=== PATIENT | male | born 2005 | race African-American/Black ===

== ENCOUNTER 2025-02-04 05:59 | Emergency (ER) | payer OTHER, SELFPAY ==
--- NOTE | ~2025-02-04 | XR_ITS ---
Portable chest x-ray Comparison: None Clinical History: Aspiration Findings: Lungs are clear, without focal consolidation or pleural effusion. Cardiomediastinal silho uette is unremarkable. Bones and soft tissues are unremarkable. Impression: Normal chest. Reviewed, dictated and finalized at location M. Impression: Normal chest.
--- NOTE | ~2025-02-04 | CT_ITS ---
Non-contrast Head CT History: Seizure Technique: Axial non-contrast imaging of the brain was performed. Dose reduction technique was used on this scan by utilizing automated exposure control and iterative reconstruction technique. The dose -length product (DLP) was 643.02 mGy-cm. Findings: There is no evidence of intracranial hemorrhage, mass lesion, or acute infarct. Brain par enchyma appears normal. The ventricles and subarachnoid spaces are normal in size. The calvarium ap pears normal. The visualized paranasal sinuses and mastoid air cells are clear. Impression: No significant abnormality seen. Reviewed, dictated and finalized at location . Impression: No significant abnormality seen.
[2025-02-04 05:57] VITALS: BP 151/75; PULSE 100; RESP 30; TEMP 36.6; O2SAT 93
--- NOTE | 2025-02-04 06:11 | ECG_ITS ---
Test Date: 2025-02-04 06:04:02 Measurements Intervals Chama Rate: 99 P: 78 WA: 168 QRS: 52 QRSD: 102 T: 60 QT: 325 QTc: 417 Interpretive Statements SINUS RHYTHM No previous ECG available for comparison Electronically Signed On 02-04-2025 07:06:21 CDT by Neetu Galvin M.D.
[2025-02-04 06:26] VITALS: PULSE 110
[2025-02-04 06:41] LABS: Hematocrit 51.7 % (42.0-52.0); Hemoglobin 15.9 g/dL (14.0-18.0); Mean Corpuscular HGB Conc 30.8 g/dl (32-36); Mean Corpuscular Hemoglobin 29.9 pg (26-34); Mean Corpuscular Volume 97.2 fl (80-100); Platelet Count Result 346 k/mm3 (150-375); Red Blood Count 5.32 M/mm3 (4.6-6.20); White Blood Count 22.9 K/mm3 (4.5-10.0)
[2025-02-04 06:43] LABS: Add Urine Microscopic? YES; Appearance Urine Clear (Clear); Glucose Urine UA Negative (Negative); Leukocyte Esterase Ur Negative LEU/UL (Negative); Nitrate Urine Negative (Negative); Non Pathogenic Casts 0-2; Specific Grav Ur 1.015 (1.001-1.035)
[2025-02-04 06:44] LABS: Acetaminophen < 10 ug/mL (10-30); Salicylate < 1.0 mg/dL (2-20)
[2025-02-04 06:51] LABS: Cannabinoid Screen Urine Positive (Negative)
[2025-02-04 06:54] LABS: Alanine Aminotransferase 58 U/L (6-50); Albumin Level 5.7 g/dL (3.5-5.1); Alkaline Phosphatase 53 U/L (38-126); Aspartate Amino Transferase 60 U/L (17-59); Bilirubin,Total 1.7 mg/dL (0.2-1.3); Blood Urea Nitrogen 10 mg/dL (9-20); Calcium 10.1 mg/dL (8.4-10.2); Carbon Dioxide < 5 mmol/L (22-30); Chloride 103 mmol/L (98-107); Estimated CRCL calculation 73 ml/min; Estimated Glomerular Filt Rate 56; Glucose 250 mg/dL (65-110); Magnesium 3.1 mg/dL (1.6-2.3); Potassium 4.4 mmol/L (3.4-5.0); Sodium 143 mmol/L (137-145); Total Protein 10.1 g/dL (6.3-8.2)
[2025-02-04 06:56] LABS: Band Neutrophils Percent 0 % (0-6); Lymphocytes Absolute Manual 9.61 K/mm3 (1.1-4.5); Lymphocytes Percent Manual 42 % (18-44); Monocytes Absolute Manual 2.29 K/mm3 (0.1-0.90); Monocytes Percent Manual 10 % (3-9); Neutrophils Absolute Manual 10.76 K/mm3 (1.3-6.7); Neutrophils Percent Manual 47 % (46-73); Total Cells Counted 100
[2025-02-04 06:57] LABS: Anisocytosis 1+; Schistocytes None Seen
--- OUTSIDE RECORDS SUMMARY | 2025-02-04 07:42 | XMS_ITS | Clinical Summary ---
Author Organization [facility] Address [address] [place] [id number] Care Team Providers Care Fans Clerk Name Role Phone Anita Erickson MD Primary Care Provider + Social History Tobacco Use Types Packs/Day Years Used Date Smoking Tobacco: Never Assessed Sex and Gender Information Value Date Recorded Sex Assigned at Not on file Legal Sex Male 10:08 PM [employer] Gender Identity Not on file Sexual Orientation Not on file Plan of Treatment Health Maintenance Due Date Last Done Comments Annual Physical 2006 HPV Vaccines (1 - Male 3-dos e series) 2018 Meningococcal B Vaccine (1 o f 2 - Standard) 2019 Hepatitis C 2021 DTaP, Tdap and Td Vaccines ( 1 - Tdap) 2022 Hepatitis B Vaccines (1 of 3 - 19+ 3-dose series) 2022 COVID-19 Vaccine (1 - 2023-2 5 season) 2024 Meningococcal Vaccine Aged Out No delores doreen eligible based on patient's age to complete this topic Pneumococcal Vaccine: Pediat rics (0 to 5 Years) and At-Risk Patients (6 to 49 Years) Aged Out No longer eligible b ased on patient's age to complete this topic RSV Immunizations Under 20 Months Aged Out No longer eligible based on patient's age to complete this topic Insurance [facility] Care Teams Fans Clerk Relationship Specialty Start Date End Date Anita Erickson MD [address] [address] [place] [id number] PCP - General PEDIATRICS 02/10/19
[2025-02-04] MEDS: SODIUM CHLORIDE 0.9% IV 1,000 ML 999 ML IV CONT (08:15)
--- NOTE | 2025-02-04 08:27 | ED_ITS ---
HPI - Altered Mental Status General Chief Complaint: Altered Mental Status Stated Complaint: Unresponsive Time Seen by Provider: 02/04/25 07:03 History of Present Illness HPI narrative: Patient is a 19-year-old male who presents ER with altered mental status and possible seizure. He is accompanied by 2 friends from [employer] who were staying with them. They report he was acting drowsy and having trouble waking up for them to go on a trip to [place]. He then had an episode where both his arms were flexed up towards his chest and shaking vigorously and he was unconscious. Patient then was confused and combative and received Versed by EMS. No previous history of seizure. No history of trauma according to the friends. Reports that they had been driving around in the evening and eating food hanging out. 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 Patient's parents arrived. No history of seizure. No history of head trauma. Patient does use marijuana. Patient does have a PCP. Related Data Allergies Allergy/AdvReac Type Severity Reaction Status Date / Time No Known Allergies Allergy Verified 02/04/25 08:14 Review of Systems 2 Review of Systems: ROS unobtainable: Yes unobtainable due to medical condition PMFSH Past Medical History Medical History (Updated 02/04/25 @ 12:29 by Aubrey Mckenna MD) Healthy adult male Surgical History Surgical History (Updated 02/04/25 @ 08:29 by Aubrey Mckenna MD) No history of previous surgery Exam 2 Narrative: GENERAL: Well-appearing, well-nourished, and in no acute distress. HEAD: Normocephalic, atraumatic. EYES: PERRL and EOMI. ENT: Mucous membranes moist. NECK: Supple. CHEST: Clear to auscultation. No respiratory distress. HEART: Tachycardic regular. Normal peripheral pulses. ABDOMEN: Soft, nontender, nondistended. EXTREMITIES: Normal range of motion. No edema. SKIN: Warm, dry, no rash. NEURO: Alert and oriented x3. Course Course Emergency Course: Patient awake alert orient x3 at neurologic baseline. Family at bedside. Discussed lab and imaging results. Discussed possibly a seizure as history sounds good for 1 but not witnessed here. Do not typically start antiepileptics after first-time seizure. Recommend no driving for 6 months and follow-up with neurology. Will give name of Neurology here but family would like to follow with a physician [facility] where they are from. Recommend hydration, did sleeps schedule, avoidance of intoxicating substances. Discussed elevated creatinine and blood sugar and they will follow up with his PCP. Leukocytosis felt to be reactive to seizure. No bands or significant elevation in neutrophils. Vital Signs Vital signs: Vital Signs Temperature 97.8 F 02/04/25 05:57 Pulse Rate 100 02/04/25 05:57 Respiratory Rate 30 H 02/04/25 05:57 Blood Pressure 151/75 H 02/04/25 05:57 Pulse Oximetry 93 02/04/25 05:57 Oxygen Delivery Room Air 02/04/25 05:57 Temperature 97.8 F 02/04/25 05:57 Pulse Rate 110 H 02/04/25 06:26 Respiratory Rate 30 H 02/04/25 05:57 Blood Pressure 151/75 H 02/04/25 05:57 Pulse Oximetry 93 02/04/25 05:57 Oxygen Delivery Room Air 02/04/25 05:57 MDM - Altered Mental Status Lab Data 02/04/25 06:23 02/04/25 06:24 Labs: Lab Results 02/04/25 02/04/25 Range/Units 06:23 06:24 WBC 22.9 H (4.5-10.0) K/mm3 RBC 5.32 (4.6-6.20) M/mm3 Hgb 15.9 (14.0-18.0) g/dL Hct 51.7 (42.0-52.0) % MCV 97.2 (80-100) fl MCH 29.9 (26-34) pg MCHC 30.8 L (32-36) g/dl RDW 12.9 (11.5-14.5) % Plt Count 346 (150-375) k/mm3 MPV 10.3 (7.4-10.4) fl Immature Gran % (Auto) Not Reportable Neut % (Auto) Not Reportable Lymph % (Auto) Not Reportable Garfield % (Auto) Not Reportable Eos % (Auto) Not Reportable Baso % (Auto) Not Reportable Lymph # (Auto) Not Reportable [place]field # (Auto) Not Reportable Eos # (Auto) Not Reportable Baso # (Auto) Not Reportable Abs Immat Gran (auto) Not Reportable Absolute Neuts (auto) Not Reportable Absolute Nucleated RBC Not Reportable Total Counted 100 Neutrophils % (Manual) 47 (46-73) % Band Neutrophils % 0 (0-6) % Lymphocytes % (Manual) 42 (18-44) % Monocytes % (Manual) 10 H (3-9) % Nucleated RBC % Not Reportable Abs Neuts (Manual) 10.76 H (1.3-6.7) K/mm3 Abs Lymphs (Manual) 9.61 H (1.1-4.5) K/mm3 Abs Monocytes (Manual) 2.29 H (0.1-0.90) K/mm3 Platelet Estimate Adequate (Adequate) Anisocytosis 1+ Schistocytes None seen Sodium 143 (137-145) mmol/L Potassium 4.4 (3.4-5.0) mmol/L Chloride 103 (98-107) mmol/L Carbon Dioxide < 5 L (22-30) mmol/L Anion Gap (4-12) mmol/L BUN 10 (9-20) mg/dL Creatinine 1.57 H (0.7-1.3) mg/dL Estim Creat Clear Calc 73 ml/min Estimated GFR 56 L (59 - ) Glucose 250 H (65-110) mg/dL Calcium 10.1 (8.4-10.2) mg/dL Magnesium 3.1 H (1.6-2.3) mg/dL Total Bilirubin 1.7 H (0.2-1.3) mg/dL AST 60 H (17-59) U/L ALT 58 H (6-50) U/L Alkaline Phosphatase 53 (38-126) U/L Total Protein 10.1 H (6.3-8.2) g/dL Albumin 5.7 H (3.5-5.1) g/dL Urine Color Yellow (Yellow) Urine Appearance Clear (Clear) Urine pH 5.5 (5.0-9.0) Ur Specific [place] 1.015 (1.001-1.035) Urine Protein 2+ H (Negative) mg/dL Urine Glucose (UA) Negative (Negative) mg/dL Urine Ketones Trace H (Negative) mg/dL Ur Blood (Man) 2+ H (Negative) Urine Nitrate Negative (Negative) Urine Bilirubin Negative (Negative) Urine Urobilinogen 0.2 (<2.0) mg/dL Leukocyte Esterase Rfl Negative (Negative) AGATHA/UL Urine RBC 0-2 (0-2) /hpf Urine WBC 0-5 (0-3) /hpf Ur Squamous Epith Cells None seen (Few) /hpf Urine Bacteria None seen /hpf Urine Casts 0-2 Salicylates < 1.0 L (2-20) mg/dL Urine Opiates Screen Negative (Negative) Urine Methadone Screen Negative (Negative) Acetaminophen < 10 L (10-30) ug/mL Ur Barbiturates Screen Negative (Negative) Ur Phencyclidine Scrn Negative (Negative) Ur Amphetamine Screen Negative (Negative) U Benzodiazepines Scrn Negative (Negative) Urine Cocaine Screen Negative (Negative) U Cannabinoids Screen Positive A (Negative) Ethyl Alcohol < 10 (<10) mg/dL Imaging Data Radiologist's impression: ITS Impressions Chest X-Ray 02/04/25 07:33 Impression: Normal chest. Head CT 02/04/25 07:35 Impression: No significant abnormality seen. Discharge Plan Discharge Clinical Impression: Seizure, Dehydration, Nondiabetic hyperglycemia Patient Disposition: Home Condition: Stable Instructions: New-Onset Seizure in Adults (ED) Additional Instructions: It is suspected that you had a seizure. Your not to drive a motor vehicle until your 6 months seizure-free. Need to follow-up with a neurologist. Return the ER if you have recurrent seizure, you have chest pain shortness of breath, you cannot keep down food water, or you have additional concerns. Your blood sugar was found to be elevated to 250 your creatinine was elevated at 1.57. Make sure to stay hydrated, make sure you per practice good sleep hygiene with earlier bed times and at least 8 hours of sleep. For the rare avoid any intoxicating substances such as alcohol or marijuana. Patient Language: Filipino Follow-up/Referrals: Stephon Duarte MD [Physician] - 1 Week UNKNOWN,DOCTOR [Primary Care Provider] -
--- NOTE | 2025-02-04 10:21 | PC.NURSE ---
Pts family members approached nurses station stating they thought pt was having a seizure. Upon this RNs arrival in the room, no seizure like activity was noted. Pt answered all questions appropriately and was A&Ox4. EDP Dr. Mckenna made aware, no new orders at this time.
== END 2025-02-04 13:13 | disposition home or self-care (01) ==
PROVIDERS: Emergency Medicine; Emergency Provider Emergency Medicine
DX: R56.9 Unspecified convulsions (principal); E86.0 Dehydration; R73.9 Hyperglycemia, unspecified
CPT/HCPCS: 36415; 70450; 71045; 80053; 80143; 80179; 80307; 81001; 82077; 83735; 85025; 93005; 96360; 99284; J7030